=== PATIENT | male | born 1965 | race Hispanic/Latino ===

== ENCOUNTER 2017-11-19 13:00 | Outpatient (CLI) | payer BC | END 2017-11-19 13:01 | disposition home or self-care (01) | LOC: BICRAD 13:00 | PROVIDERS: ATTEND Family Medicine | DX: M25.561 Pain in right knee (principal) ==

== ENCOUNTER 2018-06-10 15:20 | Outpatient (CLI) | payer BC ==
[2018-06-10 16:10] LABS: #Basophils 0.1 thou/uL (0.0-0.2); #Eosinphils 0.2 thou/uL (0.0-0.7); #Lymphocytes 2.5 thou/uL (1.20-3.40); %Basophils 0.9 % (0.0-1.0); %Lymphocytes 21.4 % (21.0-51.0); %Monocytes 8.6 % (0.0-10.0); %Neutrophils 67.1 % (42.0-75.0); Hemoglobin 14.9 g/dL (14.0-18.0); Mean Corpuscular HGB CONC 33.4 g/dL (32.0-36.0); Mean Corpuscular Hemoglobin 27.1 pg (27.0-31.0); Mean Corpuscular Volume 81.1 fL (78.0-98.0); Platelet Count 269 thou/uL (130-400); RBC Distribution Width 12.9 % (11.5-14.5); Red Blood Cell (RBC) Count 5.49 mill/uL (4.70-6.10); White Blood Cell (WBC) Count 11.9 thou/uL (4.8-10.8)
[2018-06-10 16:30] LABS: Anion Gap 7 mmol/L (10-20); BUN (Urea Nitrogen) 14 mg/dL (8.4-25.7); Calc. Creatinine Clearance 0 mL/min (70-130); Calcium 9.1 mg/dL (7.8-10.44); Carbon Dioxide 30 mmol/L (22-29); Chloride 103 mmol/L (98-107); Estimated GFR-MDRD 71; Glucose 151 mg/dL (70-105); Potassium 3.4 mmol/L (3.5-5.1); Sodium 137 mmol/L (136-145)
--- NOTE | 2018-06-14 11:40 | EKG ---
Test Reason : Blood Pressure : / mmHG Vent. Rate : 075 BPM Atrial Rate : 075 BPM P-R Int : 174 ms QRS Dur : 084 ms QT Int : 366 ms P-R-T Axes : 020 024 003 degrees QTc Int : 408 ms Normal sinus rhythm Inferior infarct , age undetermined cannot be excluded Abnormal ECG Confirmed by ANGELIKA WOODWARD ([id number]) on 06/14/2018 11:40:21 AM Referred By: IERO Confirmed By:ANGELIKA WOODWARD
== END 2018-06-10 15:21 | disposition home or self-care (01) ==
LOC: LABBT 15:20
PROVIDERS: ATTEND Orthopaedic Surgery
DX: Z01.818 Encounter for other preprocedural examination (principal); S83.206A Unspecified tear of unspecified meniscus, current injury, right knee, initial encounter
CPT/HCPCS: 80048; 85025; 93005; 93010

== ENCOUNTER 2018-06-11 06:03 | Day surgery (SDC) | payer BC ==
[2018-06-10 17:38] VITALS: BMI 36.7
[2018-06-11] MEDS ORDERED: Fentanyl 100 MCG/2 ML VIAL ONE ×2 (06:07→09:20)
[2018-06-11] MEDS ORDERED: Midazolam HCl 2 mg/2 ml Vial ONE (06:07)
[2018-06-11] MEDS ORDERED: PROPOFOL 20 ML ONE (06:31)
[2018-06-11] MEDS ORDERED: CEFAZOLIN 2 GM/50 ML BAG ONE (06:34)
--- NOTE | 2018-06-11 09:05 | OP ---
DATE OF PROCEDURE: 06/11/2018. PREOPERATIVE DIAGNOSIS: Right knee medial meniscus tear. POSTOPERATIVE DIAGNOSES: 1. Right knee posterior horn complex tear including horizontal cleavage component with a large flap component of the superior leaflet. 2. Significant chondral damage to medial femoral condyle and the trochlea with large unstable chondr al flaps. PROCEDURES PERFORMED: 1. Knee arthroscopy with partial medial meniscectomy. 2. Debridement and shaving of medial femoral condyle and trochlea. SURGEON: Arya Abraham M.D. [employer]IL[employer]ING [employer] SUPERVISOR: None. BLOOD LOSS: Minimal. COMPLICATIONS: None. ANESTHESIA: He had general anesthetic as well as a local knee block. CONDITION: He did go to the recovery room in stable condition. INDICATIONS: A 52-year-old male who has had a problem with his knee for quite some time and has put it off for a while and has failed nonoperative treatment. At this time, he opted to have surgery. OPERATIVE PROCEDURE: After all appropriate consent forms were explained and signed, he was taken [facility] to the operating room and at this time was given general anesthetic. Once anesthesia was appropria te, the tourniquet was placed on the right thigh. The leg was then prepped and draped in a standard surgical fashion. The limb was then exsanguinated and the tourniquet was taken to 300 mmHg. An infe rolateral portal was established and the scope was placed into the knee joint. A needle localization technique was then used to make a medial working portal. Diagnostic arthroscopy commenced in the [facility]. The ACL and PCL probed and found to be intact. Medial compartment was evaluated. There were s ome large unstable chondral flaps on the medial femoral condyle. These were taken down leaving as mu ch good cartilage as possible just removing the unstable cartilage to a good stable base. No visible femur was noted. In the end, this was significant grade 2 and 3 chondromalacia. The area was great er than a centimeter and a half in diameter. The posterior horn of the medial meniscus had a complex tear including a horizontal cleavage component and the top leaf of this horizontal cleavage componen t had a flap tear. Therefore, the unstable top portion was removed with the biter and shaver back to a stable base. Lateral compartment was evaluated and found to be intact. Gutters were swept throug h and there were some loose chondral pieces. These were removed with a suction shaver device. Oh lofemoral joint showed that majority of the patella was in excellent condition. The trochlea from th e central portion over to the medial femoral condyle had some significant unstable chondral flaps and these were again gently debrided back to stable base. At this time, scope was removed, knee was melissa ined. Portals were closed with simple nylon stitch. Bulky sterile dressing was applied and the tour niquet was let down. Toes pinked up nicely. The patient was awakened and taken to the recovery room in stable condition. All counts were correct at the end of the case. He received preoperative IV a ntibiotics.
[2018-06-11] MEDS ORDERED: Ketorolac Tromethamine 30 MG/ML VIAL ONE (09:30)
[2018-06-11] MEDS ORDERED: hydrALAZINE 20 MG/ML VIAL ONE (09:34)
[2018-06-11] MEDS ORDERED: Ondansetron PF 4 MG/2 ML Vial ONE (10:35)
[2018-06-11] MEDS ORDERED: HYDROcodone/Acetaminophen 5/325 mg Tablet ONE (13:01)
== END 2018-06-11 13:10 | disposition home or self-care (01) ==
LOC: SDC 06:03
PROVIDERS: ATTEND Orthopaedic Surgery
PROC: 0SBC4ZZ Excision of Right Knee Joint, Percutaneous Endoscopic Approach (ICD-10-PCS; principal; 2018-06-11)
DX: S83.231A Complex tear of medial meniscus, current injury, right knee, initial encounter (principal); M25.861 Other specified joint disorders, right knee; M94.261 Chondromalacia, right knee; Z79.899 Other long term (current) drug therapy
CPT/HCPCS: 96374; 96375; G8978-GP-CJ; G8979-GP-CJ; G8980-GP-CJ; J0360; J1885; J2250; J2405; J2704; J3010

== ENCOUNTER 2019-03-29 11:51 | Outpatient (CLI) | payer OTHER ==
--- NOTE | 2019-03-29 12:48 | RAD ---
XR Thoracic Spine 3 V STANDARD: 03/29/2019 12:00 AM CLINICAL HISTORY: Right-sided flank pain and right-sided back pain for 2 months FINDINGS: There are DISH like changes involving the upper to mid thoracic spine. No acute fracture or subluxati on demonstrated. Spinal alignment on the lateral projection appears within normal limits. The visualized lungs are clear. IMPRESSION: Moderate to prominent DISH like changes involving the upper to mid thoracic spine. No acute fracture or subluxation demonstrated..
--- NOTE | 2019-03-29 12:49 | RAD ---
EXAM: XR Lumbar Spine 2 Or 3 View DATE: 03/29/2019 12:00 AM INDICATION: Back pain COMPARISON: None. FINDING: There are 5 lumbar type vertebra. Spinal alignment is within normal limits. No acute fractu re or subluxation demonstrated. There is scattered degenerative and osteoarthritic change present. IMPRESSION:No acute fracture or subluxation demonstrated. Moderate spondylosis of the lumbar spine
== END 2019-03-29 11:52 | disposition home or self-care (01) ==
LOC: BICRAD 11:51
PROVIDERS: ATTEND Family Medicine
DX: R10.9 Unspecified abdominal pain (principal); M47.816 Spondylosis without myelopathy or radiculopathy, lumbar region
CPT/HCPCS: 72072; 72100